=== PATIENT | female | born 1935 | race Caucasian/White ===

== ENCOUNTER 2017-07-24 19:59 | Inpatient (IN) | payer OTHER ==
[~2017-07-24] VITALS: Ht 170.2 cm; Wt 113.4 kg
[~2017-07-24 19:59] MED LIST: ALENDRONATE SOD70 M3 PO; APAP/HYDROCODON1 T13 PO; BACO TOP; CHLORTHALIDONE25 MG PO; COL100 PO; COZAAR100 MG PO; ECO81 PO; FERROUS SULFATE; FOLIC ACID1 MG GT; HIBICLENS118 ML TOP; HYDRALAZINE HYD50 MG PO; LANSOPRAZOLE30 M2 PO; LANTUS SOLOS100 U/M1 SQ; LEVAQUIN750 MG PO; LOV40I SC; METFORMIN HCL1000 MG PO; METOPROLOL TART25 M1 PO; NORCO1 TA2 PO; PRILOSEC20 MG PO; PROTONIX40 MG PO; REG10 PO; SIMVASTATIN40 M1 PO; VITAMIN C GT; VITAMIN C PO; ZOC10 PO; ZOFRAN ODT4 MG PO; ZOLOFT50 MG PO
[2017-07-24 20:06] VITALS: Ht 170.2 cm; Wt 113.4 kg
[2017-07-24 21:16] VITALS: BP 153/70
[2017-07-24 22:19] LABS: PLATELET COUNT 124 x10^3mcL (130-400); RED CELL DISTRIBUTION WIDTH 19.4 % (11.5-14.5)
[2017-07-24 22:37] LABS: T3 TOTAL 0.34 ng/mL
[2017-07-24 22:43] LABS: FREE T4 1.25 ng/dL (0.76-1.46); FREE THYROXINE INDEX 2.1 ug/dL (1.4-4.5); T4(THYROXINE) 5.8 ug/dL (4.7-13.3)
[2017-07-24 22:48] LABS: CALCIUM 9.4 mg/dL (8.5-10.1); CHLORIDE SERUM 104 mmol/L (98-107); CREATININE SERUM 1.6 mg/dL (0.6-1.0); GLUCOSE SERUM 425 mg/dL (74-106); POTASSIUM SERUM 4.8 mmol/L (3.5-5.1); SODIUM SERUM 144 mmol/L (136-145)
[2017-07-24 22:55] LABS: ALKALINE PHOSPHATASE 56 U/L (46-116); ALT/SGPT 20 U/L (14-59); AST/SGOT 42 U/L (15-37); BILIRUBIN TOTAL 1.75 mg/dL (0.20-1.00); TOTAL PROTEIN, SERUM 6.8 g/dL (6.4-8.2)
[2017-07-24 23:03] LABS: ALBUMIN 2.5 g/dL (3.4-5.0)
[2017-07-24 23:07] LABS: MAGNESIUM 2.9 mg/dL (1.8-2.4); PHOSPHOROUS 5.7 mg/dL (2.5-4.9)
[2017-07-24 23:08] LABS: CHOLESTEROL/HDL RATIO 2.4
[2017-07-24 23:10] LABS: BAND NEUTROPHIL 28 % (0-10); METAMYELOCTE 33 % (0-2); MONOCYTE 5 % (0-7); MYELOCYTE 4 % (0-2); SEGMENTED NEUTROPHILS 6 % (37-75)
[2017-07-24 23:12] LABS: PLATELET MORPHOLOGY LARGE PLATELET SEEN; rbc morphology (normal/abnorm) ABNORMAL (NORMAL)
[2017-07-24 23:25] VITALS: BP 133/111
[2017-07-25 01:40] VITALS: BP 170/68
== END 2017-07-25 02:20 | disposition expired | DRG 208 ==
LOC: ED 19:59 → IC 21:32
PROVIDERS: Emergency Medicine Emergency Medical Services; Family Medicine
PROC: 5A1935Z Respiratory Ventilation, Less than 24 Consecutive Hours (ICD-10-PCS; principal; 2017-07-24)
PROC: 0BH17EZ Insertion of Endotracheal Airway into Trachea, Via Natural or Artificial Opening (ICD-10-PCS; 2017-07-24)
PROC: 0W9B30Z Drainage of Left Pleural Cavity with Drainage Device, Percutaneous Approach (ICD-10-PCS; 2017-07-24)
DX: J96.00 Acute respiratory failure, unspecified whether with hypoxia or hypercapnia (principal); I50.43 Acute on chronic combined systolic (congestive) and diastolic (congestive) heart failure; N17.0 Acute kidney failure with tubular necrosis; E43 Unspecified severe protein-calorie malnutrition; R65.11 Systemic inflammatory response syndrome (SIRS) of non-infectious origin with acute organ dysfunction; D68.69 Other thrombophilia; J93.83 Other pneumothorax; E83.39 Other disorders of phosphorus metabolism; E83.41 Hypermagnesemia; D69.6 Thrombocytopenia, unspecified; E11.65 Type 2 diabetes mellitus with hyperglycemia; Z93.1 Gastrostomy status; Z74.01 Bed confinement status; Z68.39 Body mass index [BMI] 39.0-39.9, adult; I69.328 Other speech and language deficits following cerebral infarction
CPT/HCPCS: 83880; 84439; 87804; C1729; J0171; J0282; J0330; J0461; J0696; J2001; J2704; J3490; J7030; Q0092